=== PATIENT | male | born 1960 | race Caucasian/White ===

== ENCOUNTER 2018-05-09 11:51 | Observation (INO) ==
--- NOTE | 2018-05-09 12:09 | ED ---
HPI General Chief Complaint: Stroke Alert Stated Complaint: Gen weakness Time Seen by Provider: 05/09/18 11:53 Source: patient and EMS Mode of arrival: EMS Limitations: no limitations History of Present Illness Onset (ago): minute(s) (30) Location: Reports right leg History of same: No Severity: moderate Quality: Reports weak Relieving factors: none Exacerbating factors: none Context: Reports sudden onset On Anticoagulants: No Associated symptoms: Reports confusion, diaphoresis and headaches Treatments Prior to Arrival: Reports none Related Data Home Medications Medication Instructions Recorded Confirmed amlodipine 10 mg PO BID 05/01/18 05/09/18 Allergies Allergy/AdvReac Type Severity Reaction Status Date / Time oxycodone Allergy Mild Itching Verified 05/01/18 11:05 Review of Systems ROS: all other systems reviewed are negative PENDING SALE TO [facility] Medical History Medical History Hx of primary hypertension (Acute) Surgical History Surgical History Hx of laminectomy (Acute) Social History Social History Substance History: Past History Second Hand Smoke Exposure: No Smoking Status: Current every day smoker Tobacco Type: Cigarettes How Often Do You Have a Drink Containing Alcohol: 2 to 3 times a week Recent Travel in [facility] within the Last 8 Weeks: No Recent Out of Country Travel within the Last 8 Weeks: No Exam Const General: cooperative, healthy appearing and comfortable Orientation: alert, awake and oriented x3 HENMT Head: normal to inspection, normocephalic and atraumatic Eyes Alignment and Position: alignment normal Conjunctivae: conjunctivae normal Sclera: sclerae normal EOM: EOM intact bilaterally Neck Neck: normal visual inspection, no lymphadenopathy and no meningeal signs Chest Chest: normal inspection of the chest Resp Effort & Inspection: normal respiratory effort and able to speak in complete sentences Auscultation: clear to auscultation bilaterally Cardio Rate: regular rate Rhythm: regular rhythm Back/Spine/Pelvis Cervical Spine: cervical ROM normal Thoracic/Lumbar Spine: thoraco-lumbar ROM normal Skin General: no rashes or lesions noted, turgor normal and dry skin Neuro General: alert, awake, oriented x3 and CN's II-XI intact bilaterally Cognition: normal cognition Speech: speech normal Motor: no pronator drift and no fasciculations Coordination: [id number] test normal (All ataxia on the right) and heel-to- delgado test normal (Mild ataxia on the right) Extrem General: normal to inspection and full ROM Psych Appearance: grossly normal Mental Status: mental status grossly normal Speech and Movement: speech and movement normal Mood: congruent mood Affect: normal affect Attitude: cooperative Thought Process: normal Thought Content: normal Judgment: judgment good Course Consultations Consultation #1: Dr. Ríos Time: 12:05 Consultation #2: Dr. Nguyen Time: 12:53 Initial Documented Vital Signs Temperature 99.3 F 05/09/18 12:00 Pulse Rate 79 05/09/18 12:00 Respiratory Rate 16 05/09/18 12:00 Blood Pressure 185/100 H 05/09/18 12:00 Pulse Oximetry 98 05/09/18 12:00 Last Documented Vital Signs Temperature 99.3 F 05/09/18 12:00 Pulse Rate 78 05/09/18 12:47 Respiratory Rate 16 05/09/18 12:20 Blood Pressure 171/81 H 05/09/18 12:20 Pulse Oximetry 96 05/09/18 12:49 Critical Care Time Critical Care Time: Yes Total Critical Care Time: 35 Attestation: Time to perform other separately billable procedures was not included in the critical care time. My time did not include minutes spent treating any other patients simultaneously or on activities that did not directly contribute to the patient's treatment. The services I provided to this patient were to treat and/or prevent clinically significant deterioration due to acute neurological deficit I provided critical care services requiring my management, as noted below: Chart data review, documentation time, medication orders and management, vital sign assessments/reviewing monitor data, ordering and reviewing lab tests, ordering and interpreting/reviewing x-rays and diagnostic studies, care of the patient and discussion of the patient with the admitting physicians NIH Stroke Scale NIHSS Time Completed NIHSS Time Completed: 12:11 NIH Stroke Scale Level of Consciousness: 0-Alert Orientation Questions: 0-Answers both correct Responds to Commands: 0-Both tasks correct Gaze Eye Movement: 0-Horizontal movement WNL Visual Barrett: 0-No visual field defect Facial Movement: 0-Normal Motor Functions Arm LEFT: 0-No drift Motor Functions Arm RIGHT: 0-No drift Motor Functions Leg LEFT: 0-No drift Motor Functions Leg RIGHT: 2-Falls before 5 seconds Limb Ataxia: 1-Ataxia in one limb Sensory Loss: 0-No sensory loss Best Language: 0-Normal Articulation: 0-Normal Extinction or Inattention Sensory: 0-Absent Total: 3 Medical Decision Making MDM Narrative Medical decision making narrative: This patient is brought to us via [facility] with a chief complaint of acute right leg weakness. 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 His right leg gave way. He states that he had to use the furniture of the restaurant to move to the back of the restaurant and call for help. He states that his right leg was dragging. He denies any previous similar history. Onset of symptoms was 30 minutes prior to arrival. Patient does have a history of hypertension on amlodipine. NIH score is initially 3. Stroke workup has been initiated. I have spoken with the neurologist. She does recommend TPA if his CT is negative. However, his blood pressure is marginal. His blood pressure has spontaneously improved. His CT is reportedly negative. Therefore, TPA has been ordered. The patient's symptoms had spontaneously resolved by the time Dr. Ríos arrived for her evaluation. Therefore, TPA has been held. The patient will be admitted to the medicine service for further evaluation. Medical Screen Exam Complete: Yes Emergency Medical Condition: Yes Lab Data Lab Results 05/09/18 05/09/18 Range/Units 12:03 12:04 POC Glucose 137 H (68-110) mg/dl Blood Type O Positive Blood Type Recheck Required Imaging Data Radiologist's impression: Chest X-Ray 05/09/18 12:03 CONCLUSION: No acute intrathoracic disease. Stable examination. Head CT 05/09/18 12:03 CONCLUSION: 1. Unremarkable CT scan of the brain. 2. 2.8 cm mucous retention cyst in the sphenoid sinus. The findings were called by telephone by Dr. Ruvalcaba to Dr. Jenkins at 12:25 PM . Head CTA 05/09/18 12:03 CONCLUSION: 1. Unremarkable CTA of the brain. Report was called by [ Dr. Ruvalcaba to Dr. Ríos at 12:25 PM.] Discharge Plan Discharge Disposition Patient Disposition: 30 Still Patient Discharge Details Diagnosis: Transient cerebral ischemia Physicians Team ED Provider: Marnie Jenkins Primary Care Provider: [facility] /Orders / Referrals /Forms Prescriptions: No Action amlodipine 10 mg Tablet 10 mg PO BID RF: 0 Discharge Interventions Interventions: Vital Signs Last Done: 05/09/18 12:06 Status ED Status: With Doctor
[2018-05-09] MEDS ORDERED: niCARdipine Inj 25 MG in Sodium Chlor 0.9% Inj 240 ML IV.CONT PRN (12:16)
[2018-05-09] MEDS ORDERED: Alteplase Bolus 9 MG/9 ML Syringe IV.PUSH ONE (12:19)
[2018-05-09] MEDS ORDERED: ALTEPLASE DRIP IV.SIG ONE (12:19)
[2018-05-09] MEDS: Sod Chloride 0.9% Inj 1,000 ML IV.CONT SCH ×2 (12:25→12:50)
--- NOTE | 2018-05-09 12:30 | CT ---
EXAM DATE: 05/09/2018 12:21 PM EST AGE/SEX: 57 years / Male INDICATIONS: Stroke alert, right sided weakness. CLINICAL DATA: This is the patient's initial encounter. Patient reports that signs and symptoms have been present for 1 day and indicates a pain score of Nonresponsive. MEDICAL/SURGICAL HISTORY: Non-responsive. Non-responsive. RADIATION DOSE: 34.75 CTDI (mGy) COMPARISON: C, CTA HEAD W CONTRAST W 3D, 05/09/2018. . TECHNIQUE: CT of the head without contrast. Using automated exposure control and adjustment of the mA and/or kV according to patient size, radiation dose was kept as low as reasonably achievable to ob tain optimal diagnostic quality images. DICOM format image data is available electronically for revi ew and comparison. FINDINGS: Cerebrum: The ventricles are normal for age. No evidence of midline shift, mass lesion, hemorrhage or acute infarction. No extraaxial fluid collections are seen. Posterior Fossa: The cerebellum and brainstem are intact. The 4th ventricle is midline. The cerebe llopontine angle is unremarkable. Extracranial: The visualized portion of the orbits is intact. . There is focal sinus disease in the sphenoid sinus with a mucous retention cyst measuring approximately 2.8 cm. Skull: The calvaria is intact. No evidence of skull fracture. CONCLUSION: 1. Unremarkable CT scan of the brain. 2. 2.8 cm mucous retention cyst in the sphenoid sinus. The findings were called by telephone by Dr. Ruvalcaba to Dr. Jenkins at 12:25 PM . Electronically signed by: Benny Ruvalcaba MD 05/09/2018 12:29 PM EST
--- NOTE | 2018-05-09 12:49 | XR ---
EXAM DATE: 05/09/2018 12:35 PM EST AGE/SEX: 57 years / Male INDICATIONS: Stroke Alert CLINICAL DATA: This is the patient's initial encounter. Patient reports that signs and symptoms have been present for 1 day and indicates a pain score of Nonresponsive. MEDICAL/SURGICAL HISTORY: Non-responsive. Non-responsive. [place] [facility] [place]. . FINDINGS: A single AP view of the chest demonstrates the lungs to be symmetrically aerated without evidence of mass, infiltrate or effusion. There is hyperaeration of both lung royal. The cardiomediastinal cont ours are unremarkable. Osseous structures are intact. CONCLUSION: No acute intrathoracic disease. Stable examination. Electronically signed by: Benny Ruvalcaba MD 05/09/2018 12:48 PM EST
--- NOTE | 2018-05-09 12:51 | CT ---
EXAM DATE: 05/09/2018 12:35 PM EST AGE/SEX: 57 years / Male INDICATIONS: Stroke alert, right sided weakness. CLINICAL DATA: This is the patient's initial encounter. Patient reports that signs and symptoms have been present for 1 day and indicates a pain score of Nonresponsive. MEDICAL/SURGICAL HISTORY: Non-responsive. Non-responsive. RADIATION DOSE: 28.03 CTDI (mGy) COMPARISON: [facility] [place], [place] HEAD W/O CONTRAST, 05/09/2018. . TECHNIQUE: Volumetric scanning was performed using a multi-row detector CT scanner during bolus infu gorge of 100 ml Visipaque 320 (iodixanol) nonionic water-soluble contrast as a cumulative dose for mu ltiple exams. The data was post processed with a variety of visualization algorithms including full volume maximum intensity projection, multi-planar sliding thin slab reformation, curved planar refor mation, and surface rendering techniques. Using automated exposure control and adjustment of the mA and/or kV according to patient size, radiation dose was kept as low as reasonably achievable to obtai n optimal diagnostic quality images. DICOM format image data is available electronically for review and comparison. FINDINGS: There is excellent visualization of the major intracranial arteries out to the second-order branch ve ssels. There is no evidence for aneurysm, vessel truncation or stenosis, and no evidence for vascula r malformation. CONCLUSION: 1. Unremarkable CTA of the brain. Report was called by [ Dr. Ruvalcaba to Dr. Ríos at 12:25 PM.] Electronically signed by: Benny Ruvalcaba MD 05/09/2018 12:50 PM EST
[2018-05-09 12:54] LABS: Activated Partial Thrombo Time 27.4 sec (23.4-31.7); Baso % (Auto) 0.2 % (0.0-2.0); Eos # (Auto) 0.1 th/mm3 (0.0-0.4); Eos % (Auto) 1.2 % (0.0-4.0); Hematocrit 42.3 % (39.0-51.0); Hemoglobin 14.6 gm/dL (13.0-17.0); Lymph # (Auto) 1.5 th/mm3 (1.0-4.8); Lymph % (Auto) 20.2 % (9.0-44.0); Mean Corpuscular HGB Conc 34.5 % (32.0-36.0); Mean Corpuscular Hemoglobin 31.3 pg (27.0-34.0); Mean Corpuscular Volume 90.8 fL (80.0-100.0); Mean Platelet Volume 10.8 fL (7.0-11.0); Mono # (Auto) 0.5 th/mm3 (0.0-0.9); Mono % (Auto) 6.6 % (0.0-8.0); Neut # (Auto) 5.3 th/mm3 (1.8-7.7); Neut % (Auto) 71.8 % (16.0-70.0); Platelet Count 164 th/mm3 (150-450); Prothrombin Time 10.5 sec (9.8-11.6); Red Blood Count 4.66 mil/mm3 (4.50-5.90); Red Cell Distribution Width 13.2 % (11.6-17.2); White Blood Count 7.3 th/mm3 (4.0-11.0)
--- NOTE | 2018-05-09 12:55 | CT ---
EXAM DATE: 05/09/2018 12:50 PM EST AGE/SEX: 57 years / Male INDICATIONS: Stroke alert, right sided weakness. CLINICAL DATA: This is the patient's initial encounter. Patient reports that signs and symptoms have been present for 1 day and indicates a pain score of Nonresponsive. MEDICAL/SURGICAL HISTORY: Non-responsive. Non-responsive. RADIATION DOSE: 28.03 CTDI (mGy) COMPARISON: No prior exams available for comparison. TECHNIQUE: Volumetric scanning was performed using a multirow detector CT scanner during bolus infus ion of 100 ml Visipaque 320 (iodixanol) nonionic water-soluble contrast as a cumulative dose for mul tiple exams. The data was postprocessed with a variety of visualization algorithms including full-v olume maximum intensity projection, multiplanar sliding thin-slab reformation, curved-planar reformat ion, and surface-rendering techniques. Using automated exposure control and adjustment of the mA and /or kV according to patient size, radiation dose was kept as low as reasonably achievable to obtain o ptimal diagnostic quality images. DICOM format image data is available electronically for review and comparison. FINDINGS: Aortic Arch: There is a three-vessel origin of the great vessels from the aorta. No evidence of ost ial narrowing Right Carotid: The common carotid artery is intact. The carotid bulb has a normal configuration wit hout ulceration or narrowing. The internal carotid artery lumen is smooth without stenosis. There is some tortuosity of the internal carotid artery. The external carotid artery is intact. Left Carotid: The common carotid artery is intact. The carotid bulb has a normal configuration with out ulceration or narrowing. The internal carotid artery lumen is smooth without stenosis. There is some tortuosity of the internal carotid artery. The external carotid artery is intact. Vertebrals: The vertebral arteries are patent bilaterally. The left vertebral artery is dominant. Percent stenosis is calculated using the diameter of the stenotic region over the diameter of the nor mal distal internal carotid artery. CONCLUSION: 1. Unremarkable CTA of the carotids. Electronically signed by: Benny Ruvalcaba MD 05/09/2018 12:53 PM EST
[2018-05-09 13:07] LABS: Chol/HDL Ratio 3.82 Ratio; HDL Cholesterol 41.8 mg/dL (40.0-60.0)
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
[2018-05-09 14:01] LABS: Bilirubin,Urine Negative (Negative); Clarity,Urine Clear (Clear); Color,Urine Yellow (Yellw/Straw); Glucose,Urine (UA) Negative (Negative); Leukocyte Esterase,Urine Negative (Negative); Mucus,Urine Few /lpf (Occasional); Nitrite,Urine Negative (Negative); Specific Gravity,Urine 1.039 (1.002-1.035); Squamous Epithelial Cell,Urine <1 /hpf (0-5); Urobilinogen,Urine 4 or Greater mg/dL (Less than 2)
[2018-05-09 14:04] LABS: Amphetamine Screen,Urine Neg (Neg); Barbiturate Screen,Urine Neg (Neg); Cannabinoid Screen,Urine Pos (Neg); Cocaine Screen,Urine Neg (Neg)
[2018-05-09 14:06] LABS: Opiate Screen,Urine Neg (Neg)
--- NOTE | 2018-05-09 14:21 | MB ---
cc: Madiha Ríos MD DATE: 05/09/2018 REASON FOR CONSULTATION: Stroke alert. HISTORY OF PRESENT ILLNESS: The patient is a pleasant 57-year-old man in his usual state of health. 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 He came in as a stroke alert. He went for CT, and so far everything looked normal per radiologist. By the time I came to the ER to see him. His symptoms are now resolved. We were going to initiate TPA, but since rapidly improving symptoms and at baseline no longer is TPA being given or entertained. PAST MEDICAL HISTORY: Significant history of hypertension. SOCIAL HISTORY: He is a smoker. Drinks a couple drinks weekly. LABORATORY VALUES: He had an NIH 3, glucose of 137. PHYSICAL EXAMINATION: VITAL SIGNS: Temperature is 99.3, pulse 77, respiratory rate 16, blood pressure 171/81, saturating 92% on room air. NECK: Supple. HEART: Regular. NEUROLOGIC: She is awake and alert, is fluent, oriented. Motor intact, 5/5 upper and lower extremities bilaterally. Toes are both downgoing. Reflexes symmetrical. Sensory is normal. Cerebellar normal. HEENT: Pupils reactive. Visual royal full. Face symmetrical. Tongue midline. EXTREMITIES: Gait is withheld. GENERAL: He is at bedrest. LABORATORY DATA: All I have so far is a glucose level. I will wait for the rest to come back. IMAGING: Reports as far as, imaging initial CT reported as reviewed as normal and initial CTA, verbal, given to me, was unremarkable for any occlusions. We are waiting on official report as well as carotid CTA. IMPRESSION: Transient ischemic attack, in a 57-year-old male with a history of hypertension, smoker. PLAN: Recommend a TIA workup. He will have an MRI of the brain, 2-D echo, lipid panel check hemoglobin A1c, put him on aspirin as a stroke preventative, subcutaneous heparin for DVT prevention, out of bed with physical therapy. Permissible hypertension today start normalizing his blood pressure tomorrow and get him out of bed and ambulate him. His speech is at baseline. Certainly can go ahead and start a cardiac healthy diet on him. He has remained stable. Workup is negative. Certainly discharge planning in the next 24 hours or so. MD Nimo Willoughby , 12:46 PM , 12:52 PM
[2018-05-09 14:22] LABS: Hemoglobin A1c 5.5 % (4.3-6.0)
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
[2018-05-09 23:25] VITALS: RESP 16
[2018-05-10] MEDS: Sod Chloride 0.9% Inj 1,000 ML IV.CONT SCH ×2 (03:57→05:49)
[2018-05-10 04:45] VITALS: O2SAT 97
[2018-05-10 05:36] LABS: Baso % (Auto) 0.3 % (0.0-2.0); Eos # (Auto) 0.1 th/mm3 (0.0-0.4); Eos % (Auto) 2.8 % (0.0-4.0); Hematocrit 41.5 % (39.0-51.0); Hemoglobin 14.3 gm/dL (13.0-17.0); Lymph # (Auto) 1.7 th/mm3 (1.0-4.8); Mean Corpuscular HGB Conc 34.4 % (32.0-36.0); Mean Corpuscular Hemoglobin 31.2 pg (27.0-34.0); Mean Corpuscular Volume 90.7 fL (80.0-100.0); Mean Platelet Volume 11.3 fL (7.0-11.0); Mono # (Auto) 0.5 th/mm3 (0.0-0.9); Mono % (Auto) 9.3 % (0.0-8.0); Neut % (Auto) 55.6 % (16.0-70.0); Platelet Count 151 th/mm3 (150-450); Red Blood Count 4.58 mil/mm3 (4.50-5.90); Red Cell Distribution Width 12.9 % (11.6-17.2); White Blood Count 5.3 th/mm3 (4.0-11.0)
[2018-05-10 05:52] LABS: Calcium 8.4 mg/dL (8.5-10.1); Carbon Dioxide 27.2 meq/L (21.0-32.0); Magnesium 2.2 mg/dL (1.5-2.5); Potassium 3.1 meq/L (3.5-5.1)
[2018-05-10 05:57] LABS: Chol/HDL Ratio 4.74 Ratio; HDL Cholesterol 33.1 mg/dL (40.0-60.0)
[2018-05-10 07:45] VITALS: BP 160/99; TEMP 98.2
[2018-05-10] MEDS: Potassium Chlor 20 mEq Premix 20 MEQ/100 ML PIGGYBACK IV.SIG SCH ×2 (10:04→11:46)
--- NOTE | 2018-05-10 10:41 | P.PNNEU ---
Subjective Subjective Comments: at baseline no new issues reported by pt. Active Medications: Active Medications Aspirin (Ecotrin) 81 mg PO DAILY [facility] Last Admin: 05/10/18 10:03 Dose: 81 mg Atorvastatin Calcium (Lipitor) 40 mg PO HS [facility] Last Admin: 05/09/18 21:34 Dose: 40 mg Enoxaparin Sodium (Lovenox Inj) 40 mg SQ Q24H [facility] Hydroxyzine HCl (Atarax) 25 mg PO HS PRN PRN Reason: NAUSEA Last Admin: 05/09/18 21:36 Dose: 25 mg Sodium Chloride (Ns Inj) 1,000 mls @ 70 mls/hr IV.CONT .[id number] [facility] Last Admin: 05/10/18 05:49 Dose: 70 mls/hr Sodium Chloride (Ns Inj) 1,000 mls @ 70 mls/hr IV.CONT .[id number] [facility] Last Admin: 05/10/18 03:57 Dose: Not Given Potassium Chloride (Kcl 20 Meq Premix Inj) 20 meq in 100 mls @ 50 mls/hr IV.SIG Q2H [facility] Stop: 05/10/18 11:59 Last Admin: 05/10/18 10:04 Dose: 50 mls/hr Potassium Chloride (Klor-Con 10) 30 meq PO DAILY [facility] Allergies/Adverse Reactions: Allergies Allergy/AdvReac Type Severity Reaction Status Date / Time oxycodone Allergy Mild Itching Verified 05/01/18 11:05 Physical Exam Vital signs: Vital Signs 05/09/18 12:00 05/09/18 12:05 05/09/18 12:06 Temperature 99.3 F Pulse Rate 79 79 79 Respiratory Rate 16 15 Blood Pressure 185/100 H 193/93 H Pulse Oximetry 98 98 05/09/18 12:10 05/09/18 12:20 05/09/18 12:47 Temperature Pulse Rate 77 78 Respiratory Rate 16 Blood Pressure 171/81 H Pulse Oximetry 96 92 L 05/09/18 12:48 05/09/18 12:49 05/09/18 13:50 Temperature Pulse Rate 73 Respiratory Rate 18 Blood Pressure 181/93 H Pulse Oximetry 95 96 97 05/09/18 16:55 05/09/18 18:20 05/09/18 20:00 Temperature 98.1 F 97.7 F Pulse Rate 57 L 70 67 Respiratory Rate 16 18 16 Blood Pressure 172/99 H 177/91 H 142/89 H Pulse Oximetry 97 96 97 05/10/18 00:00 05/10/18 04:00 05/10/18 07:43 Temperature 97.9 F 98 F 98.2 F Pulse Rate 69 67 73 Respiratory Rate 16 16 16 Blood Pressure 148/90 H 147/82 H 160/99 H Pulse Oximetry 96 97 97 Intake & Output 05/09/18 05/10/18 05/10/18 18:59 06:59 18:59 Intake Total 1000 / 1000 Balance 1000 / 1000 Weight 92.986 kg Intake: IV 1000 / 1000 NS Inj 1,000 ML @ 70 mls/hr IV. 1000 / 1000 CONT .[id number] [place] Rx#:[id number] Other: # Voids 2 Weight On Admission 93.416 kg - Constitutional no acute distress - Routine HEENT Exam Head: Present: normocephalic Eye: Present: EOMI - Routine Neck Exam Present: supple - Routine Respiratory Exam Present: CTA bilaterally - Routine Cardiovascular Exam Present: RRR - Routine Neurological Exam Present: alert, oriented X3, CN II-XII intact, normal reflexes, moving all extremities, vision grossly intact, hearing grossly intact Objective Radiology Results: mri ?small tiny abnl on dwi left pvwm region. cta ca-neg cta cow neg echo -pending report Laboratory Results - last 24 hr 05/09/18 05/09/18 05/09/18 12:03 12:03 12:03 WBC RBC Hgb POC Hgb (Calc) Hct POC Hct MCV MCH MCHC RDW Plt Count MPV Neut % (Auto) Lymph % (Auto) Steele % (Auto) Eos % (Auto) Baso % (Auto) Neut # (Auto) Lymph # (Auto) Steele # (Auto) Eos # (Auto) Baso # (Auto) WBC Differential Differential Comment PT INR APTT Fibrinogen POC Sodium Sodium POC Potassium Potassium POC Chloride Chloride Carbon Dioxide Anion Gap POC BUN BUN Creatinine POC Creatinine Estimated GFR POC Glucose Random Glucose Hemoglobin A1c 5.5 Calcium Magnesium Triglycerides 89 Cholesterol 160 LDL Cholesterol, Calc 100 H HDL Cholesterol 41.8 Cholesterol/HDL Ratio 3.82 Urine Color Urine Clarity Urine pH Ur Specific [place] Urine Protein Urine Glucose (UA) Urine Ketones Urine Occult Blood Urine Nitrate Urine Bilirubin Urine Urobilinogen Ur Leukocyte Esterase Urine RBC Urine WBC Ur Squamous Epith Cells Urine Mucus Micro UA Comment Ur Microscopic Review Urine Culture Comments Urine Opiates Screen Ur Barbiturates Screen Ur Amphetamines Screen U Benzodiazepines Scrn Urine Cocaine Screen U Cannabinoids Screen Blood Type O Positive Blood Type Recheck Required Antibody Screen Negative 05/09/18 05/09/18 05/09/18 12:03 12:03 12:03 WBC 7.3 RBC 4.66 Hgb 14.6 POC Hgb (Calc) 14.3 Hct 42.3 POC Hct 42.0 MCV 90.8 MCH 31.3 MCHC 34.5 RDW 13.2 Plt Count 164 MPV 10.8 Neut % (Auto) 71.8 H Lymph % (Auto) 20.2 Steele % (Auto) 6.6 Eos % (Auto) 1.2 Baso % (Auto) 0.2 Neut # (Auto) 5.3 Lymph # (Auto) 1.5 Steele # (Auto) 0.5 Eos # (Auto) 0.1 Baso # (Auto) 0.0 WBC Differential . Differential Comment Auto diff final PT 10.5 INR 1.0 APTT 27.4 Fibrinogen 269 POC Sodium 143 Sodium POC Potassium 3.2 L Potassium POC Chloride 109 Chloride Carbon Dioxide Anion Gap POC BUN 15 BUN Creatinine POC Creatinine 1.1 Estimated GFR POC Glucose 131 H Random Glucose Hemoglobin A1c Calcium Magnesium Triglycerides Cholesterol LDL Cholesterol, Calc HDL Cholesterol Cholesterol/HDL Ratio Urine Color Urine Clarity Urine pH Ur Specific [place] Urine Protein Urine Glucose (UA) Urine Ketones Urine Occult Blood Urine Nitrate Urine Bilirubin Urine Urobilinogen Ur Leukocyte Esterase Urine RBC Urine WBC Ur Squamous Epith Cells Urine Mucus Micro UA Comment Ur Microscopic Review Urine Culture Comments Urine Opiates Screen Ur Barbiturates Screen Ur Amphetamines Screen U Benzodiazepines Scrn Urine Cocaine Screen U Cannabinoids Screen Blood Type Blood Type Recheck Antibody Screen 05/09/18 05/09/18 05/09/18 12:04 12:55 12:55 WBC RBC Hgb POC Hgb (Calc) Hct POC Hct MCV MCH MCHC RDW Plt Count MPV Neut % (Auto) Lymph % (Auto) Steele % (Auto) Eos % (Auto) Baso % (Auto) Neut # (Auto) Lymph # (Auto) Steele # (Auto) Eos # (Auto) Baso # (Auto) WBC Differential Differential Comment PT INR APTT Fibrinogen POC Sodium Sodium POC Potassium Potassium POC Chloride Chloride Carbon Dioxide Anion Gap POC BUN BUN Creatinine POC Creatinine Estimated GFR POC Glucose 137 H Random Glucose Hemoglobin A1c Calcium Magnesium Triglycerides Cholesterol LDL Cholesterol, Calc HDL Cholesterol Cholesterol/HDL Ratio Urine Color Yellow Urine Clarity Clear Urine pH 6.0 Ur Specific [place] 1.039 H Urine Protein Negative Urine Glucose (UA) Negative Urine Ketones Negative Urine Occult Blood Negative Urine Nitrate Negative Urine Bilirubin Negative Urine Urobilinogen 4 or greater Ur Leukocyte Esterase Negative Urine RBC Less than 1 Urine WBC 2 Ur Squamous Epith Cells <1 Urine Mucus Few H Micro UA Comment Cath-culture not ind Ur Microscopic Review Not Reportable Urine Culture Comments Cath-cult not ind Urine Opiates Screen Neg Ur Barbiturates Screen Neg Ur Amphetamines Screen Neg U Benzodiazepines Scrn Neg Urine Cocaine Screen Neg U Cannabinoids Screen Pos H Blood Type Blood Type Recheck Antibody Screen 05/09/18 05/09/18 05/10/18 18:38 20:45 03:43 WBC RBC Hgb POC Hgb (Calc) Hct POC Hct MCV MCH MCHC RDW Plt Count MPV Neut % (Auto) Lymph % (Auto) Steele % (Auto) Eos % (Auto) Baso % (Auto) Neut # (Auto) Lymph # (Auto) Steele # (Auto) Eos # (Auto) Baso # (Auto) WBC Differential Differential Comment PT INR APTT Fibrinogen POC Sodium Sodium 142 POC Potassium Potassium 3.1 L POC Chloride Chloride 109 H Carbon Dioxide 27.2 Anion Gap 6 POC BUN BUN 12 Creatinine 0.90 POC Creatinine Estimated GFR 88 L POC Glucose 172 H 103 Random Glucose 95 Hemoglobin A1c Calcium 8.4 L Magnesium 2.2 Triglycerides 124 Cholesterol 157 LDL Cholesterol, Calc 99 HDL Cholesterol 33.1 L Cholesterol/HDL Ratio 4.74 Urine Color Urine Clarity Urine pH Ur Specific [place] Urine Protein Urine Glucose (UA) Urine Ketones Urine Occult Blood Urine Nitrate Urine Bilirubin Urine Urobilinogen Ur Leukocyte Esterase Urine RBC Urine WBC Ur Squamous Epith Cells Urine Mucus Micro UA Comment Ur Microscopic Review Urine Culture Comments Urine Opiates Screen Ur Barbiturates Screen Ur Amphetamines Screen U Benzodiazepines Scrn Urine Cocaine Screen U Cannabinoids Screen Blood Type Blood Type Recheck Antibody Screen 05/10/18 03:43 WBC 5.3 RBC 4.58 Hgb 14.3 POC Hgb (Calc) Hct 41.5 POC Hct MCV 90.7 MCH 31.2 MCHC 34.4 RDW 12.9 Plt Count 151 MPV 11.3 H Neut % (Auto) 55.6 Lymph % (Auto) 32.0 Steele % (Auto) 9.3 H Eos % (Auto) 2.8 Baso % (Auto) 0.3 Neut # (Auto) 3.0 Lymph # (Auto) 1.7 Steele # (Auto) 0.5 Eos # (Auto) 0.1 Baso # (Auto) 0.0 WBC Differential . Differential Comment Auto diff final PT INR APTT Fibrinogen POC Sodium Sodium POC Potassium Potassium POC Chloride Chloride Carbon Dioxide Anion Gap POC BUN BUN Creatinine POC Creatinine Estimated GFR POC Glucose Random Glucose Hemoglobin A1c Calcium Magnesium Triglycerides Cholesterol LDL Cholesterol, Calc HDL Cholesterol Cholesterol/HDL Ratio Urine Color Urine Clarity Urine pH Ur Specific [place] Urine Protein Urine Glucose (UA) Urine Ketones Urine Occult Blood Urine Nitrate Urine Bilirubin Urine Urobilinogen Ur Leukocyte Esterase Urine RBC Urine WBC Ur Squamous Epith Cells Urine Mucus Micro UA Comment Ur Microscopic Review Urine Culture Comments Urine Opiates Screen Ur Barbiturates Screen Ur Amphetamines Screen U Benzodiazepines Scrn Urine Cocaine Screen U Cannabinoids Screen Blood Type Blood Type Recheck Antibody Screen Review/Management - Diagnosis (1) CVA (cerebral vascular accident) Code(s): I63.9 - Cerebral infarction, unspecified Status: Acute Current Visit: Yes - Review/Management Plan: asa qd low dose statin bp control hga1c -p as is echo stop smoking dc if all testing is nl. d/w pt and .
--- NOTE | 2018-05-10 11:05 | ECHRPT ---
Indication: REBECCA/TIA CONCLUSIONS Normal left ventricular size. Wall thickness is normal. Normal wall motion. The left ventricular systolic function is normal with an estimated ejection fraction in the range of 55-60%. Trace mitral valve regurgitation. There is trace tricuspid valve regurgitation. The estimated pulmonary arterial pressure is 30 mmHg. BP: / HR: Rhythm: Sinus MEASUREMENTS (Male / Female) Normal Values Technical Quality:Fair 2D ECHO LV Diastolic Diameter PLAX 5.8 cm 4.2 - 5.9 / 3.9 - 5.3 cm LV Systolic Diameter PLAX 4.4 cm IVS Diastolic Thickness 1.0 cm 0.6 - 1.0 / 0.6 - 0.9 cm LVPW Diastolic Thickness 1.0 cm 0.6 - 1.0 / 0.6 - 0.9 cm LV Relative Wall Thickness 0.4 RV Internal Dim ED PLAX 3.1 cm LVOT Diameter 2.0 cm Aortic Root Diameter 3.5 cm DOPPLER AV Peak Velocity 129.0 cm/s AV Peak Gradient 6.7 mmHg LVOT Peak Velocity 106.0 cm/s LVOT Peak Gradient 4.5 mmHg AV Area Cont Eq pk 2.6 cm Mitral E Point Velocity 72.6 cm/s Mitral A Point Velocity 77.5 cm/s Mitral E to A Ratio 0.9 LV E' Lateral Velocity 9.0 cm/s Mitral E to LV E' Lateral Ratio 8.1 LV E' Septal Velocity 8.9 cm/s Mitral E to LV E' Septal Ratio 8.2 TR Peak Velocity 223.0 cm/s TR Peak Gradient 19.9 mmHg Right Atrial Pressure 10.0 mmHg Pulmonary Artery Systolic Pressu 29.9 mmHg Right Ventricular Systolic Press 29.9 mmHg PV Peak Velocity 72.6 cm/s PV Peak Gradient 2.1 mmHg FINDINGS LEFT VENTRICLE Normal left ventricular size. Wall thickness is normal. The left ventricular systolic function is normal with an estimated ejection fraction in the range of 55-60%. RIGHT VENTRICLE Normal right ventricular size and systolic function. LEFT ATRIUM The left atrial size is normal. RIGHT ATRIUM The right atrial size is normal. ATRIAL SEPTUM Normal atrial septal thickness without atrial level shunting by limited color doppler interrogation. AORTA The aortic root and proximal ascending aorta are normal in size on limited imaging. MITRAL VALVE Trace mitral valve regurgitation. AORTIC VALVE Trileaflet aortic valve. No aortic valve stenosis or regurgitation. TRICUSPID VALVE There is trace tricuspid valve regurgitation. The estimated pulmonary arterial pressure is 30 mmHg. PULMONARY VALVE No pulmonary valve regurgitation or stenosis. VESSELS The inferior vena cava is normal in size. PERICARDIUM No pericardial effusion. Tod Garica MD (Electronically Signed) Final Date:10 May 2018 11:04
--- NOTE | 2018-05-10 11:28 | P.PNIM ---
Physical Exam Vital signs: Vital Signs 05/09/18 12:00 05/09/18 12:05 05/09/18 12:06 Temperature 99.3 F Pulse Rate 79 79 79 Respiratory Rate 16 15 Blood Pressure 185/100 H 193/93 H Pulse Oximetry 98 98 05/09/18 12:10 05/09/18 12:20 05/09/18 12:47 Temperature Pulse Rate 77 78 Respiratory Rate 16 Blood Pressure 171/81 H Pulse Oximetry 96 92 L 05/09/18 12:48 05/09/18 12:49 05/09/18 13:50 Temperature Pulse Rate 73 Respiratory Rate 18 Blood Pressure 181/93 H Pulse Oximetry 95 96 97 05/09/18 16:55 05/09/18 18:20 05/09/18 20:00 Temperature 98.1 F 97.7 F Pulse Rate 57 L 70 67 Respiratory Rate 16 18 16 Blood Pressure 172/99 H 177/91 H 142/89 H Pulse Oximetry 97 96 97 05/10/18 00:00 05/10/18 04:00 05/10/18 07:43 Temperature 97.9 F 98 F 98.2 F Pulse Rate 69 67 73 Respiratory Rate 16 16 16 Blood Pressure 148/90 H 147/82 H 160/99 H Pulse Oximetry 96 97 97 Intake & Output 05/09/18 05/10/18 05/10/18 18:59 06:59 18:59 Intake Total 1000 / 1000 Balance 1000 / 1000 Weight 92.986 kg Intake: IV 1000 / 1000 NS Inj 1,000 ML @ 70 mls/hr IV. 1000 / 1000 CONT .[id number] [facility] Rx#:[id number] Other: # Voids 2 Weight On Admission 93.416 kg Narrative: GENERAL: WN, WD male resting in bed in [facility]. SKIN: Warm and dry. Several tattoos. HEENT: AT/NC. PERRLA. EOMI. MMM. NECK: Supple no tender LAD or JVD. HEART: RRR no m/r/g. LUNGS: CTAB without wheezes or crackles. ABDOMEN: +BS, soft, NT, ND. EXTREMITIES: No LE edema. 2+ pedal pulses. NEURO: Awake and alert. UE and LE strength 5/5 bilaterally. Sensation intact. Speech fluent. PSYCH: Appropriate mood and affect. Results - Labs CBC & Chem 7: 05/10/18 03:43 05/10/18 03:43 Laboratory Results - last 24 hr 05/09/18 05/09/18 05/09/18 12:03 12:03 12:03 WBC RBC Hgb POC Hgb (Calc) Hct POC Hct MCV MCH MCHC RDW Plt Count MPV Neut % (Auto) Lymph % (Auto) [place] % (Auto) Eos % (Auto) Baso % (Auto) Neut # (Auto) Lymph # (Auto) [place] # (Auto) Eos # (Auto) Baso # (Auto) WBC Differential Differential Comment PT INR APTT Fibrinogen POC Sodium Sodium POC Potassium Potassium POC Chloride Chloride Carbon Dioxide Anion Gap POC BUN BUN Creatinine POC Creatinine Estimated GFR POC Glucose Random Glucose Hemoglobin A1c 5.5 Calcium Magnesium Triglycerides 89 Cholesterol 160 LDL Cholesterol, Calc 100 H HDL Cholesterol 41.8 Cholesterol/HDL Ratio 3.82 Urine Color Urine Clarity Urine pH Ur Specific [place] Urine Protein Urine Glucose (UA) Urine Ketones Urine Occult Blood Urine Nitrate Urine Bilirubin Urine Urobilinogen Ur Leukocyte Esterase Urine RBC Urine WBC Ur Squamous Epith Cells Urine Mucus Micro UA Comment Ur Microscopic Review Urine Culture Comments Urine Opiates Screen Ur Barbiturates Screen Ur Amphetamines Screen U Benzodiazepines Scrn Urine Cocaine Screen U Cannabinoids Screen Blood Type O Positive Blood Type Recheck Required Antibody Screen Negative 05/09/18 05/09/18 05/09/18 12:03 12:03 12:03 WBC 7.3 RBC 4.66 Hgb 14.6 POC Hgb (Calc) 14.3 Hct 42.3 POC Hct 42.0 MCV 90.8 MCH 31.3 MCHC 34.5 RDW 13.2 Plt Count 164 MPV 10.8 Neut % (Auto) 71.8 H Lymph % (Auto) 20.2 [place] % (Auto) 6.6 Eos % (Auto) 1.2 Baso % (Auto) 0.2 Neut # (Auto) 5.3 Lymph # (Auto) 1.5 [place] # (Auto) 0.5 Eos # (Auto) 0.1 Baso # (Auto) 0.0 WBC Differential . Differential Comment Auto diff final PT 10.5 INR 1.0 APTT 27.4 Fibrinogen 269 POC Sodium 143 Sodium POC Potassium 3.2 L Potassium POC Chloride 109 Chloride Carbon Dioxide Anion Gap POC BUN 15 BUN Creatinine POC Creatinine 1.1 Estimated GFR POC Glucose 131 H Random Glucose Hemoglobin A1c Calcium Magnesium Triglycerides Cholesterol LDL Cholesterol, Calc HDL Cholesterol Cholesterol/HDL Ratio Urine Color Urine Clarity Urine pH Ur Specific [place] Urine Protein Urine Glucose (UA) Urine Ketones Urine Occult Blood Urine Nitrate Urine Bilirubin Urine Urobilinogen Ur Leukocyte Esterase Urine RBC Urine WBC Ur Squamous Epith Cells Urine Mucus Micro UA Comment Ur Microscopic Review Urine Culture Comments Urine Opiates Screen Ur Barbiturates Screen Ur Amphetamines Screen U Benzodiazepines Scrn Urine Cocaine Screen U Cannabinoids Screen Blood Type Blood Type Recheck Antibody Screen 05/09/18 05/09/18 05/09/18 12:04 12:55 12:55 WBC RBC Hgb POC Hgb (Calc) Hct POC Hct MCV MCH MCHC RDW Plt Count MPV Neut % (Auto) Lymph % (Auto) [place] % (Auto) Eos % (Auto) Baso % (Auto) Neut # (Auto) Lymph # (Auto) [place] # (Auto) Eos # (Auto) Baso # (Auto) WBC Differential Differential Comment PT INR APTT Fibrinogen POC Sodium Sodium POC Potassium Potassium POC Chloride Chloride Carbon Dioxide Anion Gap POC BUN BUN Creatinine POC Creatinine Estimated GFR POC Glucose 137 H Random Glucose Hemoglobin A1c Calcium Magnesium Triglycerides Cholesterol LDL Cholesterol, Calc HDL Cholesterol Cholesterol/HDL Ratio Urine Color Yellow Urine Clarity Clear Urine pH 6.0 Ur Specific [place] 1.039 H Urine Protein Negative Urine Glucose (UA) Negative Urine Ketones Negative Urine Occult Blood Negative Urine Nitrate Negative Urine Bilirubin Negative Urine Urobilinogen 4 or greater Ur Leukocyte Esterase Negative Urine RBC Less than 1 Urine WBC 2 Ur Squamous Epith Cells <1 Urine Mucus Few H Micro UA Comment Cath-culture not ind Ur Microscopic Review Not Reportable Urine Culture Comments Cath-cult not ind Urine Opiates Screen Neg Ur Barbiturates Screen Neg Ur Amphetamines Screen Neg U Benzodiazepines Scrn Neg Urine Cocaine Screen Neg U Cannabinoids Screen Pos H Blood Type Blood Type Recheck Antibody Screen 05/09/18 05/09/18 05/10/18 18:38 20:45 03:43 WBC RBC Hgb POC Hgb (Calc) Hct POC Hct MCV MCH MCHC RDW Plt Count MPV Neut % (Auto) Lymph % (Auto) [place] % (Auto) Eos % (Auto) Baso % (Auto) Neut # (Auto) Lymph # (Auto) [place] # (Auto) Eos # (Auto) Baso # (Auto) WBC Differential Differential Comment PT INR APTT Fibrinogen POC Sodium Sodium 142 POC Potassium Potassium 3.1 L POC Chloride Chloride 109 H Carbon Dioxide 27.2 Anion Gap 6 POC BUN BUN 12 Creatinine 0.90 POC Creatinine Estimated GFR 88 L POC Glucose 172 H 103 Random Glucose 95 Hemoglobin A1c Calcium 8.4 L Magnesium 2.2 Triglycerides 124 Cholesterol 157 LDL Cholesterol, Calc 99 HDL Cholesterol 33.1 L Cholesterol/HDL Ratio 4.74 Urine Color Urine Clarity Urine pH Ur Specific [place] Urine Protein Urine Glucose (UA) Urine Ketones Urine Occult Blood Urine Nitrate Urine Bilirubin Urine Urobilinogen Ur Leukocyte Esterase Urine RBC Urine WBC Ur Squamous Epith Cells Urine Mucus Micro UA Comment Ur Microscopic Review Urine Culture Comments Urine Opiates Screen Ur Barbiturates Screen Ur Amphetamines Screen U Benzodiazepines Scrn Urine Cocaine Screen U Cannabinoids Screen Blood Type Blood Type Recheck Antibody Screen 05/10/18 03:43 WBC 5.3 RBC 4.58 Hgb 14.3 POC Hgb (Calc) Hct 41.5 POC Hct MCV 90.7 MCH 31.2 MCHC 34.4 RDW 12.9 Plt Count 151 MPV 11.3 H Neut % (Auto) 55.6 Lymph % (Auto) 32.0 [place] % (Auto) 9.3 H Eos % (Auto) 2.8 Baso % (Auto) 0.3 Neut # (Auto) 3.0 Lymph # (Auto) 1.7 [place] # (Auto) 0.5 Eos # (Auto) 0.1 Baso # (Auto) 0.0 WBC Differential . Differential Comment Auto diff final PT INR APTT Fibrinogen POC Sodium Sodium POC Potassium Potassium POC Chloride Chloride Carbon Dioxide Anion Gap POC BUN BUN Creatinine POC Creatinine Estimated GFR POC Glucose Random Glucose Hemoglobin A1c Calcium Magnesium Triglycerides Cholesterol LDL Cholesterol, Calc HDL Cholesterol Cholesterol/HDL Ratio Urine Color Urine Clarity Urine pH Ur Specific [place] Urine Protein Urine Glucose (UA) Urine Ketones Urine Occult Blood Urine Nitrate Urine Bilirubin Urine Urobilinogen Ur Leukocyte Esterase Urine RBC Urine WBC Ur Squamous Epith Cells Urine Mucus Micro UA Comment Ur Microscopic Review Urine Culture Comments Urine Opiates Screen Ur Barbiturates Screen Ur Amphetamines Screen U Benzodiazepines Scrn Urine Cocaine Screen U Cannabinoids Screen Blood Type Blood Type Recheck Antibody Screen - Imaging Impressions Head MRI 05/09/18 00:00 CONCLUSION: 1. Faint hyperintensity is noted within the left periventricular region on the diffusion-weighted images raising possibility of tiny subacute lacunar infarct or focal ischemic change. 2. No acute hemorrhage, mass effect, midline shift or extra-axial bleed. 3. Mucus retention cyst within the sphenoid sinus. Chest X-Ray 05/09/18 12:03 CONCLUSION: No acute intrathoracic disease. Stable examination. Head CT 05/09/18 12:03 CONCLUSION: 1. Unremarkable CT scan of the brain. 2. 2.8 cm mucous retention cyst in the sphenoid sinus. The findings were called by telephone by Dr. Ruvalcaba to Dr. Jenkins at 12:25 PM . Head CTA 05/09/18 12:03 CONCLUSION: 1. Unremarkable CTA of the brain. Report was called by [ Dr. Ruvalcaba to Dr. Ríos at 12:25 PM.] Neck CTA 05/09/18 12:03 CONCLUSION: 1. Unremarkable CTA of the carotids.
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
[2018-05-10 12:27] VITALS: PULSE 54
[2018-05-10] MEDS ORDERED: Enoxaparin Inj 40 MG/0.4 ML Syringe SQ SCH (13:15)
[2018-05-10 16:07] LABS: Hemoglobin A1c 5.3 % (4.3-6.0)
--- NOTE | 2018-05-10 20:16 | ECG ---
Date Performed: 05/09/2018 Time Performed: 13:27:33 PTAGE: 57 years EKG: Sinus rhythm POSSIBLE LEFT VENTRICULAR HYPERTROPHY ABNORMAL ECG PREVIOUS TRACING : 11/17/2015 16.09 Since the previous tracing, no significant change noted DOCTOR: Chante Harry Interpretating Date/Time 05/10/2018 20:05:40
== END 2018-05-10 12:22 | disposition home or self-care (01) ==
LOC: NEPC 11:51 → NEDA 11:51 → NEPGCP 14:05
PROVIDERS: ADMIT Family Medicine; ATTEND Family Medicine